=== PATIENT | female | born 1960 | race Caucasian/White ===

== ENCOUNTER 2017-06-24 18:16 | Emergency (ER) | payer OTHER ==
[~2017-06-24] VITALS: Ht 157.5 cm; Wt 53.5 kg
[~2017-06-24 18:16] MED LIST: CELEXA40 MG PO; FIORICET,ESG1 TABLET PO; FOLIC ACID1 MG PO; ONDANSETRON HCL4 M2 PO; PROTONIX20 MG PO
[2017-06-24 20:44] VITALS: BP 134/77
== END 2017-06-24 20:45 | disposition home or self-care (01) ==
LOC: EME 18:16
PROC: 3E0234Z Introduction of Serum, Toxoid and Vaccine into Muscle, Percutaneous Approach (ICD-10-PCS; principal; 2017-06-24)
DX: M54.9 Dorsalgia, unspecified (principal); S50.311A Abrasion of right elbow, initial encounter; M54.2 Cervicalgia; W19.XXXA Unspecified fall, initial encounter; Z23 Encounter for immunization; M81.0 Age-related osteoporosis without current pathological fracture; K58.9 Irritable bowel syndrome, unspecified; Z96.649 Presence of unspecified artificial hip joint; F17.200 Nicotine dependence, unspecified, uncomplicated
CPT/HCPCS: 72050; 72070; 72100; 99281; 99283

== ENCOUNTER 2017-07-02 14:59 | Emergency (ER) | payer OTHER ==
[~2017-07-02] VITALS: Ht 157.5 cm; Wt 54.1 kg
[2017-07-02 15:49] VITALS: BP 130/80
== END 2017-07-02 15:52 | disposition home or self-care (01) ==
LOC: EME 14:59
DX: S50.311A Abrasion of right elbow, initial encounter (principal); W18.30XA Fall on same level, unspecified, initial encounter; F17.200 Nicotine dependence, unspecified, uncomplicated
CPT/HCPCS: 99281; 99283

== ENCOUNTER 2017-08-07 12:27 | Emergency (ER) | payer OTHER ==
[~2017-08-07] VITALS: Ht 152.4 cm; Wt 50.0 kg
[2017-08-07] MEDS ORDERED: ERGOCALCIF50000 UNIT PO (12:42)
[2017-08-07] MEDS ORDERED: ZANTAC150 MG PO (12:42)
[2017-08-07] MEDS ORDERED: CLONIDINE HCL0.1 MG PO (12:43)
[2017-08-07] MEDS ORDERED: AMITRIPTYLINE H10 MG PO (12:44)
[2017-08-07] MEDS ORDERED: BENTYL10 MG PO (12:45)
[2017-08-07 13:16] LABS: HEMATOCRIT 35.1 % (36.0-46.0); HEMOGLOBIN 11.6 G/DL (11.9-15.5); MCH 34.5 PG (29.0-34.0); MCV 104.5 FL (83-99); PLATELET COUNT 191 K/uL (156-360); RED BLOOD COUNT 3.36 M/uL (3.80-5.20)
[2017-08-07 13:23] LABS: CHLORIDE 108 mEq/L (99-109); POTASSIUM 3.3 mEq/L (3.7-5.4); SODIUM 143 mEq/L (136-147)
[2017-08-07 13:25] LABS: GLUCOSE 132 mg/dL (70-99)
[2017-08-07 13:28] LABS: SERUM ETHYL ALCOHOL 145 mg/dL
[2017-08-07 13:29] LABS: CREATININE 0.7 mg/dL (0.6-1.3); GFR ESTIMATE (CALCULATED) > 59 mL/min/
[2017-08-07 13:30] LABS: UREA NITROGEN (BUN) 8 mg/dL (9-23)
[2017-08-07 15:46] VITALS: BP 117/64
== END 2017-08-07 15:49 | disposition home or self-care (01) ==
LOC: EME 12:27
PROVIDERS: Emergency Medicine Emergency Medical Services
DX: F32.9 Major depressive disorder, single episode, unspecified (principal); F10.10 Alcohol abuse, uncomplicated; K58.9 Irritable bowel syndrome, unspecified; F17.200 Nicotine dependence, unspecified, uncomplicated; Z87.19 Personal history of other diseases of the digestive system; Z96.641 Presence of right artificial hip joint; Z88.6 Allergy status to analgesic agent
CPT/HCPCS: 80048; 85027; 99281; 99284; G0480

== ENCOUNTER 2017-08-26 16:02 | Emergency (ER) | payer OTHER ==
[~2017-08-26] VITALS: Ht 157.5 cm; Wt 54.8 kg
[~2017-08-26 16:02] MED LIST changes: +AMITRIPTYLINE H10 MG PO; +BENTYL10 MG PO; +CLONIDINE HCL0.1 MG PO; +ERGOCALCIF50000 UNIT PO; +ZANTAC150 MG PO
[2017-08-26 16:32] LABS: APPEARANCE CLEAR ((CLEAR)); BILIRUBIN NEGATIVE; BLOOD NEGATIVE; COLOR YELLOW ((YELLOW)); GLUCOSE (STRIP) NEGATIVE; KETONES NEGATIVE; LEUKOCYTES NEGATIVE; NITRITE NEGATIVE; PROTEIN (STRIP) NEGATIVE; SPECIFIC GRAVITY 1.019 (1.000-1.030); UCUL ADDED? NO; UROBILINOGEN 0.2 MG/DL (0.2-1.0)
[2017-08-26 16:39] LABS: HEMATOCRIT 37.9 % (36.0-46.0); HEMOGLOBIN 12.2 G/DL (11.9-15.5); MCH 33.2 PG (29.0-34.0); MCHC 32.2 G/DL (30.0-36.0); MCV 103.3 FL (83-99); RBC DIS.WIDTH-CV 16.4 % (11.8-14.6); RBC DIS.WIDTH-SD 63.4 % (39-53); RED BLOOD COUNT 3.67 M/uL (3.80-5.20); WHITE BLOOD COUNT 10.1 K/uL (4.1-10.2)
[2017-08-26 16:42] LABS: PLATELET COUNT 263 K/uL (156-360)
[2017-08-26 16:49] LABS: CHLORIDE 106 mEq/L (99-109); POTASSIUM 3.9 mEq/L (3.7-5.4); SODIUM 139 mEq/L (136-147)
[2017-08-26 16:50] LABS: GLUCOSE 104 mg/dL (70-99)
[2017-08-26 16:54] LABS: CREATININE 0.7 mg/dL (0.6-1.3); GFR ESTIMATE (CALCULATED) > 59 mL/min/
[2017-08-26 16:55] LABS: UREA NITROGEN (BUN) 14 mg/dL (9-23)
[2017-08-26 17:39] VITALS: BP 121/74
== END 2017-08-26 17:46 | disposition left against medical advice (07) ==
LOC: EME 16:02
DX: N39.0 Urinary tract infection, site not specified (principal); Z53.21 Procedure and treatment not carried out due to patient leaving prior to being seen by health care provider
CPT/HCPCS: 80048; 81003; 85027